=== PATIENT | female | born 1960 | race Caucasian/White ===

== ENCOUNTER 2025-02-08 04:36 | Emergency (ER) | payer BC, SELFPAY ==
[2025-02-08] VITALS (7 sets, daily range): BP systolic 91–107; BP diastolic 52–61; BMI 20.9
[2025-02-08 05:21] LABS: Hematocrit 35.8 % (37.0-47.0); Hemoglobin 11.8 g/dL (12.0-16.0); Mean Corp Hgb Conc. 33.0 g/dL (33.0-37.0); Mean Corpuscular Volume 100.8 fL (81.0-99.0); Platelet Count 256 10^3/uL (130-400); Red Cell Dist. Width 12.0 % (11.5-14.5)
--- NOTE | 2025-02-08 05:29 | ED.GENMED ---
History of Present Illness
<Jennifer Dorado PA-C - Last Filed: 02/08/25 22:55>
General
Chief Complaint: Dizziness
Source: patient
Exam Limitations: none
Time Seen by Provider: 02/08/25 04:38
Nursing documentation reviewed up to this point in time: agreed with
History of Present Illness
History of Present Illness:
Note:
CHIEF COMPLAINT(S)
Chest discomfort and dizziness.
HISTORY OF PRESENT ILLNESS
The patient is a 64-year-old female with a pertinent medical history of a past ?seizure event in 2018, who presents to the ER today with a complaint of chest pain followed by dizziness. The symptoms woke her up from sleep. The chest pain developed
during the night, prior to the onset of the dizziness, and resolved by the time she awoke up again. The chest pain lasted approximately 1 minute. On attempting to stand from her bed and go use the bathroom, she experienced severe vertigo described
as the room spinning as well as pronounced nausea. This was the first occurrence of such symptoms. She did not loose consciousness. She did not fall or hit her head or injury her neck. She denies headache, neck pain. She subsequently called EMS. She
was able to walk outside to the ambulance without any difficulty. She was assessed by EMS and reported feeling better following the administration of intravenous fluids, as well as droperidol. The patient denies any recurrent chest pain or dizziness
since the initial episode. She also denies a personal history of heart disease and does not currently follow with a dental specialist or neurologist. She apparently had a seizure like episode in 2018 and was cleared by neurology a few years ago and was
told that she does not have to follow up anymore. Chart review reveals that those symptoms in 2018 were attributed to Unisom use and she had a normal brain MRI at that time. She denies any double vision, blurry vision, dysphagia, difficulty walking,
upper or lower extremity paresthesias, difficulty speaking, changes to her hearing. She does not smoke; she does not have a hx of HTN or HLP. She denies shortness of breath, palpitations, abdominal pain, diarrhea. Patient's daughter's suspect her
symptoms are related to dehydration, as patient reports that the past few day, she has been doing yard work for multiple hours at a time outside in the sun.
CHART REVIEW
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
03/22/17, brain MRI unremarkable
PHYSICAL EXAM
Nursing notes reviewed and vital signs reviewed.
General: Patient is well appearing and in no acute distress; non-toxic
Skin: Warm and dry, no rashes or lesions. Brisk capillary refill.
Head: Normocephalic, atraumatic
Eyes: Sclera non-icteric. EOMs intact. No nystagmus.
Cardiac: Regular rate and rhythm, no murmurs
Pulm: Normal respiratory effort, no wheezes, rales, or rhonchi
Neuro: CN II-XII intact, no focal neurologic deficits. Normal finger to nose, heel to mobley testing.
Abdomen: Soft and non-tender to palpation
Psychiatric: Appropriate mood and affect.
PLAN
- Administer an additional bag of IV fluids, considering possible dehydration and low blood pressure.
- Await blood work results to screen for potential anemia, electrolyte imbalances, and trending cardiac biomarkers to rule out acute coronary syndrome.
- Reassess the need for imaging based on the resolution of symptoms and normal neurologic exam.
DIFFERENTIAL DIAGNOSIS
The Differential Diagnosis includes, in no particular order and is not limited to:
1. Dehydration
2. Benign Paroxysmal Positional Vertigo
3. Orthostatic Hypotension
4. Acute Coronary Syndrome
5. Vestibular Neuritis
6. Labyrinthitis
7. Cardiogenic Syncope
8. Anxiety or Panic Attack
9. Stroke (Posterior Circulation)
MDM/DISPOSITION
The patient is a 64-year-old female with no pertinent medical history who presents to the ER this morning with concerns of transient dizziness and chest discomfort. The chest discomfort awoke her from sleep, lasting a short period of time. She than
felt better and went back to sleep. She was woken up later again but this time by a sudden onset of vertigo. She went to go use the bathroom and noticed her symptoms got worse when she stood up. She did not loose consciousness or have any nausea,
vomiting. She called EMS and after recieving IV fluids and droperidol, her symptoms completely resolved. On my exam, she is well appearing, and in no acute distress. She has no focal neurologic deficits. Appears comfortable. Her symptoms are not
reproducible. Her CBC and CMP are unremarkable. Her ECG shows sinus bradycardia but no signs of heart block, no ischemic changes.
Patient is slightly hypotensive upon arrival will give more fluids. 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
syncope. Patient was told by her neurologist that she no longer needs follow up. 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 Suspect
patients symptoms related to dehydration from multiple hours of yard work outside vs orthostatic hypotension vs episode of BPPV. Discussed possibilities with patient. Discussed strict return precautions and stressed importance of outpatient follow
up. Will repeat troponin and ambulate patient again.
On my reassessment, patient is sleeping comfortably. Will continue to observe patient for changes in neurologic status and monitor for return of her symptoms.
7:00 am--Case signed out to Alma SANDOVAL pending repeat troponin
Past History
<Jennifer Dorado PA-C - Last Filed: 02/08/25 22:55>
Past History
ED Past Medical History: Seizures
ED Past Surgical History: None
Social History
Tobacco: Non-smoker
Alcohol: None
Drug: None
Living: with family
Employment: Employed
Phy Exam
<ITALIA Aceves - Last Filed: 02/08/25 11:51>
Physical Exam
Physical Exam:
s
Course
<Jennifer Dorado PA-C - Last Filed: 02/08/25 22:55>
Orders/Labs/Results
Orders:
Orders
02/08/25 04:44
EKG [Electrocardiogram (*1)] Urgent
Reason for Study: Vertigo / Dizzy
02/08/25 04:45
EKG- Treatment ONCE
02/08/25 04:52
Complete Blood Count/With Diff Urgent
Troponin I Urgent
02/08/25 04:53
Comprehensive Metabolic Panel Urgent
02/08/25 05:41
0.9% Sodium Chloride 500 ml [Nss] 500 ml IV BOLUS
02/08/25 07:55
Troponin I Urgent
02/08/25 08:00
Electrocardiogram (*1) Urgent
Reason for Study: Chest Pain
02/08/25 08:56
EKG- Treatment ONCE
Abnormal Lab Results
02/08/25 02/08/25
04:52 04:53
WBC 4.5 L 10^3/uL
(4.8-10.8)
RBC 3.55 L 10^6/uL
(4.20-5.40)
Hgb 11.8 L g/dL
(12.0-16.0)
Hct 35.8 L %
(37.0-47.0)
MCV 100.8 H fL
(81.0-99.0)
MCH 33.2 H pg
(27.0-31.0)
Neutrophils % 33.4 L %
(42.2-75.2)
Lymphocytes % 53.5 H %
(20.5-51.1)
Chloride 111 H mmol/L
(98-107)
Glucose 124 H mg/dl
(70-99)
Calcium 8.3 L mg/dl
(8.4-10.2)
Total Protein 5.7 L g/dl
(6.3-8.2)
Albumin 3.4 L g/dl
(3.5-5.0)
02/08/25 04:52
02/08/25 04:53
Vital Signs
Initial and Last Documented VS:
Initial Vital Signs
Temp Pulse Resp BP Pulse Ox
97.7 F 51 18 107/61 99
02/08/25 04:38 02/08/25 04:38 02/08/25 04:38 02/08/25 04:38 02/08/25 04:38
Last Documented Vital Signs
Temp Pulse Resp BP Pulse Ox
98.6 F 50 20 104/52 96
02/08/25 08:12 02/08/25 08:12 02/08/25 08:12 02/08/25 08:12 02/08/25 08:12
<ITALIA Aceves - Last Filed: 02/08/25 11:51>
Orders/Labs/Results
Orders:
Orders
02/08/25 04:44
EKG [Electrocardiogram (*1)] Urgent
Reason for Study: Vertigo / Dizzy
02/08/25 04:45
EKG- Treatment ONCE
02/08/25 04:52
Complete Blood Count/With Diff Urgent
Troponin I Urgent
02/08/25 04:53
Comprehensive Metabolic Panel Urgent
02/08/25 05:41
0.9% Sodium Chloride 500 ml [Nss] 500 ml IV BOLUS
02/08/25 07:55
Troponin I Urgent
02/08/25 08:00
Electrocardiogram (*1) Urgent
Reason for Study: Chest Pain
02/08/25 08:56
EKG- Treatment ONCE
Abnormal Lab Results
02/08/25 02/08/25
04:52 04:53
WBC 4.5 L 10^3/uL
(4.8-10.8)
RBC 3.55 L 10^6/uL
(4.20-5.40)
Hgb 11.8 L g/dL
(12.0-16.0)
Hct 35.8 L %
(37.0-47.0)
MCV 100.8 H fL
(81.0-99.0)
MCH 33.2 H pg
(27.0-31.0)
Neutrophils % 33.4 L %
(42.2-75.2)
Lymphocytes % 53.5 H %
(20.5-51.1)
Chloride 111 H mmol/L
(98-107)
Glucose 124 H mg/dl
(70-99)
Calcium 8.3 L mg/dl
(8.4-10.2)
Total Protein 5.7 L g/dl
(6.3-8.2)
Albumin 3.4 L g/dl
(3.5-5.0)
02/08/25 04:52
02/08/25 04:53
Vital Signs
Initial and Last Documented VS:
Initial Vital Signs
Temp Pulse Resp BP Pulse Ox
97.7 F 51 18 107/61 99
02/08/25 04:38 02/08/25 04:38 02/08/25 04:38 02/08/25 04:38 02/08/25 04:38
Last Documented Vital Signs
Temp Pulse Resp BP Pulse Ox
98.6 F 50 20 104/52 96
02/08/25 08:12 02/08/25 08:12 02/08/25 08:12 02/08/25 08:12 02/08/25 08:12
<Jennifer Dorado PA-C - Last Filed: 02/08/25 22:55>
*Pulse Oximetry
SaO2: 97
Oxygen Mode of Delivery: Room air
<ITALIA Aceves - Last Filed: 02/08/25 11:51>
*Pulse Oximetry
Patient hypoxic: no
*Critical Care Note
Total Time (30-74mins, 75-104mins- exclusive of procedures): Not Applicable
<ITALIA Aceves - Last Filed: 02/08/25 11:51>
Update Note
Update Note:
Received signout from Bridgett Dorado. Patient feeling much better no vertigo. repeat troponin neg and repeat ekg unremarkable . pt stable d/c home . Pt able to ambulate steady.
ED Attending Note
<Jennifer Dorado PA-C - Last Filed: 02/08/25 22:55>
-
Portions of this chart may have been created with voice recognition software.� Occasional wrong word or��sound alike� substitutions may have occurred due to the inherent limitations of voice recognition software.
Discharge Plan
Departure
Patient Disposition: Home (Routine Discharge)
Date of Disposition: 02/08/25
Time of Disposition: 09:24
Patient with high blood pressure during this ER visit?: No
Condition: Good
Discharge Problem:
Dizziness, Chest pain
Instructions: Vertigo (a Type of Dizziness) (DC), Chest pain - Discharge instructions
Prescriptions:
No Action
No Current Medications
0
Referrals:
kira pierce [Other]
Hernandez Blair MD [Active, Otology] - Call in 1-3 days for appt
NONE,* [Family Provider, Internal Medicine]
Kwasi Bruce MD [Active, Cardiology] - Call in 1-3 days for appt
Activity Restrictions/Additional Instructions:
Please call the attached number to be evaluated by ENT regarding your vertigo symptoms. Please follow up with your primary care provider in one week.
Please continue to monitor your symptoms.
PLEASE RETURN TO THE ER SHOULD YOU EXPERIENCE LOSS OF CONSCIOUSNESS, CHEST PAIN, SHORTNESS OF BREATH, RETURN OF YOUR DIZZINESS, DOUBLE VISION, CONFUSION, DIFFICULTY SPEAKING, NUMBNESS OR TINGLING, MOTOR WEAKNESS, DIFFICULTY AMBULATING, TROUBLE
SWALLOWING, OR ANY OTHER SIGNS OR SYMPTOMS WORRISOME TO YOU.
Interventions
Interventions:
*Risk Screen - Suicide Last Done: 02/08/25 04:45
*General Assessment Last Done: 02/08/25 04:45
*Neglect/Abuse Screening Last Done: 02/08/25 04:45
*ED- Fall Risk Assessment Last Done: 02/08/25 04:45
*ED COVID-19 Vaccine History Last Done: 02/08/25 04:45
*Nursing Disposition Last Done: 02/08/25 10:02
ED- Neurological Assessment Last Done: 02/08/25 05:00
ED- Cardiac Assessment Last Done: 02/08/25 05:00
ED Swallowing Screen Last Done: 02/08/25 06:16
Discharge Date and Time
Discharge Date/Time: 02/08/25 10:03
Print Language: SPANISH
[2025-02-08 05:40] LABS: ALT (SGPT) 11 U/L (0-35); AST (SGOT) 15 U/L (14-36); Albumin 3.4 g/dl (3.5-5.0); Alkaline Phosphatase 52 U/L (38-126); Blood Urea Nitrogen 15 mg/dl (7-17); Calcium 8.3 mg/dl (8.4-10.2); Carbon Dioxide 25 mmol/L (22-30); Chloride 111 mmol/L (98-107); Estimated Creatinine Clearance 71 ml/min; Glucose 124 mg/dl (70-99); Potassium 3.8 mmol/L (3.5-5.1); Sodium 140 mmol/L (135-145); Total Protein 5.7 g/dl (6.3-8.2); eGFR > 60.00
[2025-02-08 05:51] LABS: Troponin I < 0.012 ng/ml
[2025-02-08] MEDS: NSS 500 IV (05:53)
[2025-02-08 06:30] LABS: Nucleated Red Blood Cells % 0 %
[2025-02-08 08:29] LABS: Troponin I < 0.012 ng/ml
== END 2025-02-08 10:03 | disposition home or self-care (01) ==
LOC: EMR 04:36
PROVIDERS: Physician Assistant; EMERGENCY PHYSICIAN Student in an Organized Health Care Education/Training Program
DX: R42 Dizziness and giddiness (principal); R07.89 Other chest pain
CPT/HCPCS: 99283; 96360; 96361; 80053; 84484; 85025; 93005

== ENCOUNTER 2025-02-26 18:37 | Emergency (ER) | payer BC, SELFPAY ==
[2025-02-26 18:40] VITALS: BP 134/81
--- NOTE | 2025-02-26 19:29 | ED.GENMED ---
History of Present Illness
General
Chief Complaint: Skin Surface Trauma
Time Seen by Provider: 02/26/25 19:15
History of Present Illness
History of Present Illness:
64-year-old female presents for evaluation of her right lower leg injury. She became pinned between a fence post in the front of her riding mower. She is concerned about internal bleeding although there is essentially a small hematoma to the site.
She is not on anticoagulants
Past History
Past History
ED Past Medical History: Seizures
ED Past Surgical History: None
Social History
Tobacco: Non-smoker
Alcohol: None
Drug: None
Living: with family
Employment: Employed
Review of Systems
Review of Systems
Allergies reviewed?: Yes
All Other Systems: ROS reviewed and negative except as documented in HPI and ROS
Phy Exam
Physical Exam
Physical Exam:
GEN: Well appearing, NAD, WDWN
HEENT: Oral mucosa moist, no scleral icterus
Cardiac: Regular rate
Lung: No respiratory distress, no tachypnea
MSK: Golf ball sized hematoma to the right anterior lower leg with overlying abrasion, no active bleeding. Mild calf swelling with no evidence of Achilles tendon rupture, no pain with passive stretch, strong right dorsalis pedis pulse
Skin: Good color, no pallor or jaundice, no rashes
Neuro: AO x3, moves all extremities freely
Psych: Calm, cooperative
Course
Orders/Labs/Results
Orders:
Orders
02/26/25 18:45
Tibia/Fibula, Right 2 View [CR Leg Tibia/fibula Right 2 Vw] Urgent
Comment:
Reason For Exam: crush injury
Vital Signs
Initial and Last Documented VS:
Initial Vital Signs
Temp Pulse Resp BP Pulse Ox
98.4 F 75 20 134/81 98
02/26/25 18:40 02/26/25 18:40 02/26/25 18:40 02/26/25 18:40 02/26/25 18:40
Last Documented Vital Signs
Temp Pulse Resp BP Pulse Ox
98.4 F 75 20 134/81 98
02/26/25 18:40 02/26/25 18:40 02/26/25 18:40 02/26/25 18:40 02/26/25 19:34
MDM/Problems Addressed
MDM/Problems Addressed:
X-ray showed no evidence for fracture. Discussed supportive care for isolated hematoma as well as return parameters and signs and symptoms of compartment syndrome however none of the symptoms are present at this time
*Pulse Oximetry
SaO2: 98
Oxygen Mode of Delivery: Room air
Patient hypoxic: no
*Critical Care Note
Total Time (30-74mins, 75-104mins- exclusive of procedures): Not Applicable
ED Attending Note
-
Portions of this chart may have been created with voice recognition software.� Occasional wrong word or��sound alike� substitutions may have occurred due to the inherent limitations of voice recognition software.
Discharge Plan
Departure
Patient Disposition: Home (Routine Discharge)
Date of Disposition: 02/26/25
Time of Disposition: 19:32
Patient with high blood pressure during this ER visit?: No
Discharge Problem:
Hematoma of right lower leg
Instructions: Hematoma
Prescriptions:
No Action
No Current Medications
0
Referrals:
UNKNOWN - PT DOES,NOT KNOW [Unknown Provider]
Activity Restrictions/Additional Instructions:
Compress, ice, and elevate the leg to reduce swelling. If you develop severe unrelenting pain of the right calf, if the calf begins to feel very from like a wooden 2 x 4, or if you develop numbness or discoloration of the foot, return to the
emergency department immediately
Interventions
Interventions:
*Risk Screen - Suicide Last Done: 02/26/25 18:40
*General Assessment Last Done: 02/26/25 18:40
*Neglect/Abuse Screening Last Done: 02/26/25 19:35
*Nursing Disposition Last Done: 02/26/25 19:51
ED-Skin Assessment Last Done: 02/26/25 19:35
Discharge Date and Time
Discharge Date/Time: 02/26/25 19:51
Print Language: GAMBIAN
== END 2025-02-26 19:51 | disposition home or self-care (01) ==
LOC: EMR 18:37
PROVIDERS: EMERGENCY PHYSICIAN Emergency Medicine
DX: S80.11XA Contusion of right lower leg, initial encounter (principal); W23.0XXA Caught, crushed, jammed, or pinched between moving objects, initial encounter
CPT/HCPCS: 99283; 73590